=== PATIENT | male | born 1970 | race Caucasian/White ===

== ENCOUNTER 2024-11-14 15:17 | Emergency (ER) | payer BC ==
[~2024-11-14] VITALS: Ht 190.5 cm; Wt 103.0 kg
[~2024-11-14 15:17] MED LIST: AZIT250 PO; CODGUAEL PO; HYDACE5 PO; IBUP600 PO; IBUP800 PO; LEVFLO500 PO; LORA1 PO; NAPR550 PO; RXHYDACE PO
[2024-11-14] MEDS ORDERED: Morphine Sulfate 4 MG/1 ML Injection IV ONE (18:45)
[2024-11-14] MEDS ORDERED: Ketorolac Tromethamine 15mg Vial IV ONE (18:45)
[2024-11-14] MEDS ORDERED: Ondansetron HCl 2 MG / ML 2ML Vial IV ONE (19:10)
[2024-11-14 21:04] VITALS: BP 122/82
[2024-11-14] MEDS ORDERED: RX Prepack 6 Tabs Oxycodone 5mg UD ONE (21:20)
== END 2024-11-14 21:21 | disposition home or self-care (01) ==
LOC: ER 15:17
DX: S92.251A Displaced fracture of navicular [scaphoid] of right foot, initial encounter for closed fracture (principal); Z88.0 Allergy status to penicillin; W17.89XA Other fall from one level to another, initial encounter
CPT/HCPCS: 29515; 73610; 73630; 73700; 96374-59; 96375-59; 99284-25; A9270; J1885; J2270; J2405

== ENCOUNTER 2024-11-18 07:57 | Day surgery (SDC) | payer BC ==
[~2024-11-18] VITALS: Ht 190.5 cm; Wt 105.5 kg
[~2024-11-18 07:57] MED LIST changes: +Bupivacaine 0.5% W/EPI 1:200000 SDV 30 ML Vial ONE
[2024-11-18] MEDS ORDERED: Midazolam HCl 1MG / ML 2ML Vial ONE (08:39)
[2024-11-18] MEDS ORDERED: FentaNYL Citrate 50 MCG/ML 2 ML Injection ONE (08:39)
[2024-11-18] MEDS ORDERED: Bupivacaine 0.5% HCl 5 MG/ML 30MLVIAL ONE (08:43)
[2024-11-18] MEDS ORDERED: CeFAZolin Sodium 2,000 MG VIAL ONE (08:54)
[2024-11-18] MEDS ORDERED: Dexamethasone Sod Phos 10 MG/ML 1ML VIAL ONE (10:06)
[2024-11-18] MEDS ORDERED: Ondansetron HCl 2 MG / ML 2ML Vial ONE (10:06)
[2024-11-18 11:24] VITALS: BP 123/82
[2024-11-18] MEDS ORDERED: Ketorolac Tromethamine 30mg Vial ONE (11:48)
[2024-11-18] MEDS ORDERED: OxyCODONE 5 mg/Acetamin 325 mg TABLET ONE (11:51)
--- NOTE | 2024-11-18 12:11 | NUR ---
11/18/24 1211 SANDRA LEE PT TOLD TO GET HOME AND GET LEG ELEVATED AND ICED ELI.
== END 2024-11-18 12:13 | disposition home or self-care (01) ==
LOC: ORSCSDS 07:57
PROVIDERS: Podiatrist Foot & Ankle Surgery
PROC: 0SGH04Z Fusion of Right Tarsal Joint with Internal Fixation Device, Open Approach (ICD-10-PCS; principal; 2024-11-18 09:30)
PROC: 0QSL04Z Reposition Right Tarsal with Internal Fixation Device, Open Approach (ICD-10-PCS; principal; 2024-11-18 09:30)
DX: S92.251A Displaced fracture of navicular [scaphoid] of right foot, initial encounter for closed fracture (principal); W18.30XA Fall on same level, unspecified, initial encounter
CPT/HCPCS: A6253; A9270; C1713; C1734; C1769; J0690; J1100; J1885; J2250; J2405; J2704; J3010; J7120